=== PATIENT | female | born 1980 | race American Indian/Alaskan Native ===

== ENCOUNTER 2017-09-20 19:00 | Emergency (ER) | payer MEDICAID ==
[2017-09-20 19:48] VITALS: BP 115/72
[2017-09-20 20:42] LABS: Bilirubin,Urine NEG (Negative); Blood,Urine NEG (Negative); Color,Urine Yellow (Yellow); Nitrite,Urine NEG (Negative); Protein,Urine <15 mg/dL mg/dL (Negative)
== END 2017-09-20 23:10 | disposition left against medical advice (07) ==
LOC: ED 19:00
DX: R11.10 Vomiting, unspecified (principal); R07.9 Chest pain, unspecified; Z53.21 Procedure and treatment not carried out due to patient leaving prior to being seen by health care provider
CPT/HCPCS: 81001; 81025; 93005; 93010

== ENCOUNTER 2019-02-20 12:31 | Emergency (ER) | payer MEDICAID ==
[2019-02-20 12:56] VITALS: BP 130/88
--- NOTE | 2019-02-20 12:56 | Event Note ---
ED Screening Note ED Screening Note: 4-22 LMP SPOTTING WITH SUPRAPUBIC PAIN [id number]; CHILD 1 NORMAL DC PMH HTN CIG NO DRUGS/CIG THC This initial assessment/diagnostic orders/clinical plan/treatment(s) is/are subject to change based on patients health status, clinical progression and re- assessment by fellow clinical providers in the ED. Further treatment and workup at subsequent clinical providers discretion. Patient/guardian urged not to elope from the ED as their condition may be serious if not clinically assessed and managed. Initial orders include: UA/PREG ONCE PREG RESULTS-MAY NEED BLOOD/ADDITIONAL TESTING MSE COMPLETED YE RICCI
--- NOTE | 2019-02-20 13:38 | Emergency Department Report ---
ED Female HPI - General Chief complaint: Abdominal Pain Stated complaint: STOMACH PAIN/BLEEDING/POSS Time Seen by Provider: 02/20/19 12:52 Source: patient Mode of arrival: Ambulatory Limitations: No Limitations - History of Present Illness Initial comments: Ms. Lowe is a 38-year-old female presents with pelvic cramping and vaginal spotting for one day. Last normal period January 12. History of 5 pregnancies. 5 live births. One 3 miscarriages. Now cramping. Mild symptoms. MD Complaint: vaginal bleeding -: Gradual, days(s) (1) Severity: mild Quality: cramping Consistency: constant Improves with: none Worsens with: none Associated Symptoms: vaginal bleeding - Related Data Allergies Allergy/AdvReac Type Severity Reaction Status Date / Time No Known Allergies Allergy Verified 09/20/17 19:48 ED Review of Systems ROS: Stated complaint: STOMACH PAIN/BLEEDING/POSS Other details as noted in HPI Comment: All other systems reviewed and negative Constitutional: denies: fever, malaise Respiratory: denies: cough Cardiovascular: denies: chest pain ED Past Medical Hx - Past Medical History Previous Medical History?: Yes Hx Hypertension: Yes - Surgical History Past Surgical History?: Yes Additional Surgical History: csection 2002 - Social History Smoking Status: Current Every Day Smoker Substance Use Type: Marijuana ED Physical Exam - General Limitations: No Limitations General appearance: alert, in no apparent distress, other (appears comfortable. Does not appear to be ill or in distress) - Head Head exam: Present: atraumatic, normocephalic - Eye Eye exam: Present: normal appearance - ENT ENT exam: Present: mucous membranes moist - Neck Neck exam: Present: normal inspection, full ROM - Respiratory Respiratory exam: Present: normal lung sounds bilaterally. Absent: respiratory distress, wheezes, rales, rhonchi - Cardiovascular Cardiovascular Exam: Present: regular rate, normal rhythm, normal heart sounds. Absent: systolic murmur, diastolic murmur, rubs, gallop - GI/Abdominal GI/Abdominal exam: Present: soft, normal bowel sounds. Absent: distended, tenderness, guarding, rebound - Extremities Exam Extremities exam: Present: normal inspection - Back Exam Back exam: Present: normal inspection - Neurological Exam Neurological exam: Present: alert, oriented X3 - Psychiatric Psychiatric exam: Present: normal affect, normal mood - Skin Skin exam: Present: warm, dry, intact, normal color. Absent: rash ED Course Vital Signs 02/20/19 12:51 Temperature 97.4 F L Pulse Rate 75 Respiratory 16 Rate Blood Pressure 130/88 [Right] O2 Sat by Pulse 100 Oximetry ED Medical Decision Making - Medical Decision Making Ms. Lowe came to ED for confirmation of . She was quite upset during her ED. She told me that "I am not going to keep the baby because he does not want it. He says that it is not even his." Significant other at the bedside did not have anything to say. I provided verbal support. dc'd home Critical care attestation.: If time is entered above; I have spent that time in minutes in the direct care of this critically ill patient, excluding procedure time. ED Disposition Clinical Impression: Disposition: DC-01 TO HOME OR SELFCARE Is pt being admited?: No Does the pt Need Aspirin: No Condition: Stable Instructions: (ED) Referrals: PATRICIA GAMA MD [Primary Care Provider] - 3-5 Days
[2019-02-20 15:01] LABS: HCG Qualitative,Urine Positive (Negative)
[2019-02-20 15:04] LABS: Bilirubin,Urine NEG (Negative); Blood,Urine NEG (Negative); Color,Urine Yellow (Yellow); Mucus,Urine 3+ /HPF
== END 2019-02-20 15:46 | disposition home or self-care (01) ==
LOC: ED 12:31
DX: O26.891 Other specified pregnancy related conditions, first trimester (principal); R10.2 Pelvic and perineal pain; O26.851 Spotting complicating pregnancy, first trimester; O16.1 Unspecified maternal hypertension, first trimester; O99.331 Smoking (tobacco) complicating pregnancy, first trimester; F17.200 Nicotine dependence, unspecified, uncomplicated; F12.10 Cannabis abuse, uncomplicated; Z3A.01 Less than 8 weeks gestation of pregnancy
CPT/HCPCS: 81001; 81025